=== PATIENT | female | born 1960 | race Caucasian/White ===

== ENCOUNTER 2016-08-17 06:32 | Day surgery (SDC) | payer BC ==
[2016-08-17] MEDS ORDERED: Sodium Chloride 0.9% 10 ML Syringe FLUSH PRN (07:00)
[2016-08-17] MEDS ORDERED: Lactated Ringers 1,000 ML IV SCH (07:00)
[2016-08-17] MEDS ORDERED: cefOXitin 1 GM in Premix Bag 1 BAG IV ONE (07:45)
[2016-08-17] MEDS ORDERED: Ketorolac 30 MG/ML SDV IVPUSH ONE (08:00)
[2016-08-17] MEDS ORDERED: Ondansetron 4 MG/2 ML SDV IVPUSH ONE (08:00)
[2016-08-17] MEDS ORDERED: fentaNYL 100 MCG/2 ML SDV IV ONE (08:00)
[2016-08-17] MEDS ORDERED: Dexamethasone 4 MG/ML 5 ML MDV IVPUSH ONE (08:00)
[2016-08-17] MEDS ORDERED: Propofol 200 MG/20 ML SDV IV ONE (08:00)
[2016-08-17] MEDS ORDERED: Lactated Ringers 1,000 ML IV ONE (08:00)
[2016-08-17] MEDS ORDERED: Neostigmine Methylsulfate 1 MG/ML 5 ML Syringe IV ONE (08:00)
[2016-08-17] MEDS ORDERED: Lidocaine 2% 100 MG/5 ML Syringe IVPUSH ONE (08:00)
[2016-08-17] MEDS ORDERED: ePHEDrine 50 MG/ML SDV IV ONE (08:00)
[2016-08-17] MEDS ORDERED: Midazolam 1 MG/ML 2 ML SDV IV ONE (08:00)
[2016-08-17] MEDS ORDERED: Rocuronium 50 MG/5 ML Vial IV ONE (08:00)
[2016-08-17] MEDS ORDERED: Lidocaine 1% with EPINEPHrine 1:100,000 20 ML MDV ONE (08:30)
[2016-08-17] MEDS ORDERED: Bupivacaine 0.5% 30 ML SDV ONE (08:31)
--- NOTE | 2016-08-17 09:06 | PCM.OPNOTE ---
- General Post-Op/Procedure Note Date of Surgery/Procedure: 08/17/16 Operative Procedure(s): lap cholecystectomy Findings: gallbladder and contents fatty deposits on liver dome Pre Op Diagnosis: sx gallstones Post-Op Diagnosis: Same Anesthesia Technique: General ET tube, Local (10 ml 1 % lido with epi/0.5% buvipicaine) Primary Surgeon: Thierno Eid Anesthesia Provider: Isaura Moss Pathology: gallbladder and contents. sample of liver dome lesions Condition: Good Free Text/Narrative:: see dictation
[2016-08-17] MEDS ORDERED: Acetaminophen/HYDROcodone 325-5 MG Tab PO ONE (11:14)
[2016-08-17 11:27] VITALS: BP 104/56
--- NOTE | 2016-08-17 13:42 | OR ---
DATE OF OPERATION: 08/17/2016 SURGEON: Thierno Eid MD PROCEDURE PERFORMED: Laparoscopic cholecystectomy. PREOPERATIVE DIAGNOSIS: Symptomatic gallstones. POSTOPERATIVE DIAGNOSIS: Symptomatic gallstones. INDICATIONS FOR PROCEDURE: This is a 55-year-old white female, who is referred with a history of symptomatic gallbladder disease. She was offered and accepted a lap-jose. DESCRIPTION OF OPERATION: After an excellent general anesthetic was administered, the patient was prepped and draped in the usual sterile manner. 8 mL of 1:1 mixture of 1% lidocaine with epinephrine and 0.5% Marcaine was used total. We started at the level of the anterior umbilicus. This area was infiltrated. A small vertical midline incision was made. Blunt dissection was carried out exposing the midline fascia and 2 stay sutures of 0 Vicryl were placed on either side of the midline fascia, which was then elevated, incised, and the abdominal cavity was entered. After digital palpation to ensure there were no adhesions, a 10.5 mm Aime trocar was inserted in the patient's abdomen. The patient's abdomen was then insufflated to 15 mmHg using carbon dioxide. Under direct visualization, three 5 mm ports were placed, 1 in the midline epigastrium and 2 below the right costal margin. This was done using the following technique. Local was used to infiltrate the full thickness of the abdominal wall. A stab incision was made in the skin and the trocars were inserted. Gallbladder was grasped and retracted in a cephalad fashion. The infundibulum was grasped and careful blunt dissection was carried out exposing the cystic duct and cystic artery. After obtaining a critical view, 2 clips were placed proximally on both these structures and 1 distally, and they were transected. L-hook cautery dissection was then used to dissect the gallbladder free from the underlying gallbladder fossa. The specimen was passed into a bag and delivered out through the umbilical port. On inspecting the dome of the gallbladder, there were these small deposits on the dome. Initially, there was a question as to what they were. Photos were taken, and we were able to remove several of them to obtain a pathologic exam. On further evaluation, they appeared to be fatty deposits, but we will obtain pathological confirmation. After irrigating until clear and ensuring excellent hemostasis, the 5 mm ports and the trocars were removed. The periumbilical port was closed with a figure- of-eight 0 Vicryl and 2 stay sutures were tied to each other. Subcu 4-0 Vicryl was used to close the skin. Steri-Strips and Band-Aids were applied. The patient was taken to recovery room in good condition having tolerated the procedure well. /[id number] /MODL
== END 2016-08-17 12:13 | disposition home or self-care (01) ==
LOC: FB.SDS 06:32
PROVIDERS: ATTEND Surgery
DX: K80.10 Calculus of gallbladder with chronic cholecystitis without obstruction (principal); K76.0 Fatty (change of) liver, not elsewhere classified; Z90.710 Acquired absence of both cervix and uterus; Z79.899 Other long term (current) drug therapy; Z88.2 Allergy status to sulfonamides
CPT/HCPCS: 47562; 88304; 88305; A9270; J0694; J1100; J1885; J2250; J2405; J2704; J3010; J7120